=== PATIENT | female | born 1955 | race Caucasian/White ===

== ENCOUNTER → 2017-12-24 | Outpatient (CLI) | payer OTHER | END | disposition home or self-care (01) | LOC: C.CPL 14:38 | PROVIDERS: ATTEND Orthopaedic Surgery | DX: M25.531 Pain in right wrist (principal) ==

== ENCOUNTER 2023-03-05 06:48 | Observation (INO) ==
--- NOTE | 2023-01-24 12:10 | PAT Medication Instructions ---
Medication Instructions Date of Service January 24, 2023 Home Medications calcium-vitamin D3-vitamin K 500 mg-100 unit-40 mcg chewable tablet 2 tab PO QAM cholecalciferol (vitamin D3) 50 mcg (2,000 unit) capsule (Vitamin D3) 100 mcg PO QAM hydrochlorothiazide 12.5 mg capsule 12.5 mg PO QAM iodine (kelp) 1 tab PO QAM levothyroxine 88 mcg tablet 88 mcg PO QAM losartan 100 mg tablet 100 mg PO QAM multivitamin 1 tab PO QAM turmeric 150 mg-herbal complex no.278 capsule 1 cap PO QAM ] zinc 50 mg tablet 50 mg PO QAM STOP taking 2 weeks before surgery turmeric 150 mg-herbal complex no.278 capsule 1 cap PO QAM DO NOT take the morning of surgery zinc 50 mg tablet 50 mg PO QAM losartan 100 mg tablet 100 mg PO QAM calcium-vitamin D3-vitamin K 500 mg-100 unit-40 mcg chewable tablet 2 tab PO QAM cholecalciferol (vitamin D3) 50 mcg (2,000 unit) capsule (Vitamin D3) 100 mcg PO QAM hydrochlorothiazide 12.5 mg capsule 12.5 mg PO QAM iodine (kelp) 1 tab PO QAM multivitamin 1 tab PO QAM Take morning of surgery With a small sip of water, OTHERWISE NOTHING TO EAT OR DRINK AFTER MIDNIGHT: levothyroxine 88 mcg tablet 88 mcg PO QAM Other Notes If you have any questions please call us at [phone] or [phone] or [phone] or [phone]
--- NOTE | 2023-01-30 09:23 | Anesthesiology Consultation ---
Date of Service January 30, 2023 Assessment & Plan (1) Encounter for pre-operative examination: Chart Review Chart Review: Acceptable Risk for Surgery (pending PCP clearance 02/04/23) and Patient seen in Pre Admission Testing - Awaiting PCP clearance 02/04/23 - Pt did call into PAT on 02/05/23- hesitant re: BINTA- feels she may want GA - encouraged to discuss with anesthesiologist DOS Pt is NOT a Same Day Joint candidate due to patient not wanting to go home the same day- patient would like 23 hour observation- surgeon's office made aware on 02/05/23 Per PAT appt on 01/30/23, patient denies any recent travel or large group activities. Pt is NOT vaccinated for Covid. Will leave to surgeon's discretion if preop Covid testing needed. Educated on importance of using Covid precautions one week prior to surgery Teaching & Discussion Pre-Anesthesia Teaching/Discussion Notes: Instructed NPO after midnight before surgery,except medications with 15 cc of water. Medication instructions provided according to the PAT guidelines. History Surgery Operation Date: 03/05/23 08:25 Proposed Procedures p Left Total Knee Arthroplasty - Guido Springer DO Height/Weight Height: 5 ft 10 in Weight: 80.2 kg Allergies Allergy/AdvReac Type Severity Reaction Status Date / Time clarithromycin [From Biaxin] Allergy Intermediate SEVERE Verified 01/24/23 08:21 HEADACHE Sulfa (Sulfonamide Allergy Intermediate Hives Verified 01/24/23 08:21 Antibiotics) Medications Home Medications Medication Instructions Recorded Confirmed Last Taken calcium-vitamin D3-vitamin K 500 2 tab PO QAM 01/24/23 01/24/23 Unknown mg-100 unit-40 mcg chewable tablet cholecalciferol (vitamin D3) 50 100 mcg PO QAM 01/24/23 01/24/23 Unknown mcg (2,000 unit) capsule (Vitamin D3) hydrochlorothiazide 12.5 mg capsule 12.5 mg PO QAM 01/24/23 01/24/23 Unknown iodine (kelp) 1 tab PO QAM 01/24/23 01/24/23 Unknown levothyroxine 88 mcg tablet 88 mcg PO QAM 01/24/23 01/24/23 Unknown losartan 100 mg tablet 100 mg PO QAM 01/24/23 01/24/23 Unknown multivitamin 1 tab PO QAM 01/24/23 01/24/23 Unknown turmeric 150 mg-herbal complex 1 cap PO QAM 01/24/23 01/24/23 Unknown no.278 capsule zinc 50 mg tablet 50 mg PO QAM 01/24/23 01/24/23 Unknown Past Medical History Medical History Claustrophobia No issues with oxygen mask History of COVID-19 06/2022>RESOLVED Hx of migraines Hx of vertigo Per previous PCP records- feels possibly orthostatic in nature- pt referred to PT for vestibular therapy Improved with Sarah Beth maneuver as of PAT appt 01/30/23 Negative tilt table per patient Hypertension Hypothyroidism Mitral valve prolapse Mild per patient; no murmur noted at 01/30/23 PAT appt Osteoporosis PVC (premature ventricular contraction) Asymptomatic; 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 Exercise / Class Metabolic Activity II 4-5 Yardwork/Stairs/Walk up hill (one flight of stairs - no chest pain or SOB ) Past Family History Family History Other No family history of adverse response to anesthesia Past Surgical History Surgical History H/O microdiscectomy LUMBAR H/O parathyroidectomy (TAKEN OUT D/T "IRREGULAR SHAPE/BENIGN") H/O wrist surgery RT (HARDWARE) History of arthroscopy RT KNEE History of cataract surgery RT History of colonoscopy History of tonsillectomy and adenoidectomy History of tooth extraction S/P LASIK surgery of both eyes Past Anesthesia History No Hx of Anesthesia Complications and No Family Hx of Anesthesia Complications History of PONV No Hx of PONV and No Hx of Motion Sickness Social History Smoking Status: Never smoker Hx Alcohol Use: Yes alcohol intake frequency: holidays/special occasions only substance use type: does not use Review of Systems Hx of snoring- hx of sleep study- no MELISSA Patient denies chest pain, shortness of breath, dyspnea on exertion, reflux, cough, wheezing, palpitations. No hx of seizures, stroke, [place]. No hx of blood clots or blood transfusions Physical Exam Vital Signs VITALS BP 163/80 (patient took BP medication less than an hour ago; anxious about surgery- will be seeing PCP for preop clearance 02/04/23) P 81 TEMP 98.0 SP02 100% RESP 16 Constitutional no acute distress ENMT Mouth: no TMJ clicking Thyromental Distance: < 3.5 Finger Breadths (3.0) Mallampati Class: I Full dentures on top and bottom Neck neck extension not limited Respiratory normal respiratory effort; no respiratory distress Auscultation: lungs clear to auscultation bilaterally; no wheezes Cardiovascular Rate/Rhythm: regular rate and regular rhythm Heart Sounds: no murmur Vessels: no carotid bruit Musculoskeletal Spine: no pain with cervical ROM Extremities: extremities normal to inspection Psychiatric Orientation: alert Lab Results Anesthesia Preop Results Results Anesthesia Widget: WBC 4.82 K/ul (4.8-10.8) 01/30/23 Hgb 13.1 g/dl (12.0-16.0) 01/30/23 Hct 39.2 % (37.0-47.0) 01/30/23 Plt 267 K/uL (130-400) 01/30/23 Na 136 mmol/L (136-145) 01/30/23 K 3.6 mmol/L (3.5-5.1) 01/30/23 Cl 100 mmol/L (98-107) 01/30/23 CO2 30 mmol/L (21-32) 01/30/23 BUN 9 mg/dl (6-23) 01/30/23 Creat 0.65 mg/dl (0.6-1.2) 01/30/23 Glucose Level 92 mg/dl (70-99(Fasting)) 01/30/23 PT 10.7 Seconds (9.0-12.0) 01/30/23 PTT 30.5 Seconds (21.0-31.0) 01/30/23 INR 1.0 (0.9-1.1) 01/30/23 HA1c 5.2 % (4.5-5.6) 01/30/23 Urine Color Yellow 01/30/23 Urine Appearance Clear (Clear) 01/30/23 Urine pH 7.5 (4.5-7.5) 01/30/23 Urine Specific [place] 1.007 (1.000-1.030) 01/30/23 Urine Protein Negative (Negative) 01/30/23 Urine Glucose (UA) Negative (Negative) 01/30/23 Urine Ketones Negative (Negative) 01/30/23 Urine Blood Negative (Negative) 01/30/23 Urine Nitrite Negative (Negative) 01/30/23 Urine Bilirubin Negative (Negative) 01/30/23 Urine Urobilinogen Negative (Negative) 01/30/23 Urine Leukocyte Esterase Trace (Negative) H 01/30/23 Urine WBC (Auto) 1-5 /hpf (0-5) 01/30/23 Urine RBC (Auto) 0-4 /hpf (0-4) 01/30/23 Urine Hyaline Casts (Auto) 1-5 /lpf (0-5) 01/30/23 Urine Epithelial Cells (Auto) 0-5 /lpf (0-5) 01/30/23 Urine Bacteria (Auto) Negative (Negative) 01/30/23 Blood Type B Positive 01/30/23 Antibody Screen NEGATIVE 01/30/23 Testing Electrocardiogram Date: 01/30/23 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 Lopez- patient can proceed as scheduled) Chest X-Ray Date: 01/30/23 Findings: + NAD COVID-19 Risk Screen Screening Information COVID-19 Screen Date: 01/30/23 Exposure 21 Days Family/Household +COVID Last 21 Days: No Exposure 10 Days Any COVID Exposure Last 10 Days: No Symptoms Last 10 Days Experienced COVID Sx Last 10 Days: No + COVID 0-90 Days COVID + in Last 0-90 Days: No Risk Plan COVID Risk Plan: No Risk Identified Patient Education COVID Preop Screening Education Complete: Yes
--- NOTE | 2023-02-05 10:06 | History & Physical Report ---
Date of Service February 05, 2023 date of surgery: 03/05/23 Procedure: Left Total Knee Arthroplasty Surgeon: Guido Springer Assessment & Plan (1) Arthritis of knee, left: Plan: Risks and benefits of the procedure discussed in detail, she has failed conservative measures and will proceed with left total knee replacement. Will place on aspirin 81 mg twice a day for 1 month postop DVT prophylaxis, will follow-up in the office 2 weeks postop sooner if she is having issues. This point time as no other questions or concerns The risks and benefits have been discussed including, but not limited to, risk of infection, nerve injury, stiffness, loss of motion, failure to improve, etc. Reasonable outcomes and options of treatment were discussed. An explanation of appropriate alternatives to the procedure that may be advantageous were discussed and their risks and benefits, as well as the risks and benefits of not proceeding with treatment. I offered to answer any additional inquiries concerning the treatment involved. All the patient's questions were answered. The patient is agreeable, understanding of the treatment plan and alternatives, and wishes to proceed with the treatment plan. History of Present Illness Chief Complaint: left knee pain Primary Care Provider: Deidre Sherafshin Cao is a pleasant 68-year-old female presents for preop evaluation prior to left total knee replacement. She states she began pain in his knee for many years now which gradually worsened and is now affecting her daily activities including walking standing using stairs. She has tried and failed previous conservative options including NSAIDs, injections, bracing as well as home exercise program. She rates her current pain as a 7 out of 10, at this point time is failed conservative measures and would like to proceed with a left total knee replacement Allergies Allergy/AdvReac Type Severity Reaction Status Date / Time clarithromycin [From Biaxin] Allergy Intermediate SEVERE Verified 01/24/23 08:21 HEADACHE Sulfa (Sulfonamide Allergy Intermediate Hives Verified 01/24/23 08:21 Antibiotics) Home Medications Medication Instructions Recorded Confirmed Type calcium-vitamin D3-vitamin K 500 2 tab PO QAM 01/24/23 01/24/23 History mg-100 unit-40 mcg chewable tablet cholecalciferol (vitamin D3) 50 100 mcg PO QAM 01/24/23 01/24/23 History mcg (2,000 unit) capsule (Vitamin D3) hydrochlorothiazide 12.5 mg capsule 12.5 mg PO QAM 01/24/23 01/24/23 History iodine (kelp) 1 tab PO QAM 01/24/23 01/24/23 History levothyroxine 88 mcg tablet 88 mcg PO QAM 01/24/23 01/24/23 History losartan 100 mg tablet 100 mg PO QAM 01/24/23 01/24/23 History multivitamin 1 tab PO QAM 01/24/23 01/24/23 History turmeric 150 mg-herbal complex 1 cap PO QAM 01/24/23 01/24/23 History no.278 capsule zinc 50 mg tablet 50 mg PO QAM 01/24/23 01/24/23 History Past Med/Surg History Medical History Claustrophobia No issues with oxygen mask History of COVID-19 06/2022>RESOLVED Hx of migraines Hx of vertigo Per previous PCP records- feels possibly orthostatic in nature- pt referred to PT for vestibular therapy Improved with Sarah Beth maneuver as of PAT appt 01/30/23 Negative tilt table per patient Hypertension Hypothyroidism Mitral valve prolapse Mild per patient; no murmur noted at 01/30/23 PAT appt Osteoporosis PVC (premature ventricular contraction) Asymptomatic; 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 Surgical History H/O microdiscectomy LUMBAR H/O parathyroidectomy (TAKEN OUT D/T "IRREGULAR SHAPE/BENIGN") H/O wrist surgery RT (HARDWARE) History of arthroscopy RT KNEE History of cataract surgery RT History of colonoscopy History of tonsillectomy and adenoidectomy History of tooth extraction S/P LASIK surgery of both eyes Family History Other No family history of adverse response to anesthesia Social History Smoking Status: Never smoker Second Hand Exposure: Yes ( A CHILD); Hx Alcohol Use: Yes Preferred Language: [place] [employer] Required: No Beliefs That Will Affect Care: None marital status: Current Living Situation: Spouse Feels Safe at Home: Yes Assistive Devices: Denture - Upper and Denture - Lower Review of Systems Review of Systems: All systems reviewed & are unremarkable except as noted in HPI & below Constitutional: no fever, no chills and no sweats Respiratory: no cough and no dyspnea Cardiovascular: no chest pain, no dyspnea and no orthopnea Gastrointestinal: no abdominal pain, no nausea and no vomiting Musculoskeletal: as per Subjective / HPI Physical Exam Physical Exam: HT: 5ft 10in WT: 80.2kg Constitutional: WD/WN, vitals as above no acute distress Respiratory: normal respiratory effort, lungs clear to auscultation no respiratory distress, no labored breathing and does not use accessory muscles Cardiovascular: RRR, no murmur, no edema Gastrointestinal (Abdomen): normal bowel sounds, soft, nontender, no hepatosplenomegaly Musculoskeletal: Knee: + knee abnormal to inspection (LEFT KNEE), + effusion (+1 effusion), + limited ROM of knee (ROM 0/3/110), + knee ROM with crepitation, + joint line tenderness (medial joint line) and + Tyrell's sign positive; no deformity, no skin erythema, no ecchymosis, no valgus laxity, no varus laxity, anterior drawer test negative, Nghia's sign negative and pivot shift test negative Results & Data Results & Data Diagnostic Findings Left Knee X-ray: left knee series confirm advanced degenerative changes to the left knee, greatest medial compartments and patellofemoral joint, showing joint space narrowing, osteophyte formation and subchondral sclerosis. no acute bony pathology noted.
[~2023-03-05 06:48] MED LIST: ACETAMINOPHEN 500 MG TAB PO SCH; BUPIVACAINE 0.5 % 5 MG/1 ML PF 10ML VIAL ONE; DEXAMETHASONE SOD INJ 4 MG/ML VIAL ONE; FAMOTIDINE 20 MG TAB PO SCH; GABAPENTIN 300 MG CAP PO SCH; LR 500ML BOLUS, THEN 15ML/HR IV SCH; METOCLOPRAMIDE HCL 10 MG TABLET PO SCH; ROPIVACAINE 0.5% 5 MG/ML 30 ML VIAL ONE; ROPIVACAINE 0.5% HCL/PF 150 MG, BUPIVACAINE 0.75% MPF 20 ML, EPINEPHrine 30MG/30ML (OR ... INSTIL SCH; TRANEXAMIC ACID 1,000 MG **IV Intra-op IV SCH; TRANEXAMIC ACID 1,000 MG **IV Pre-op IV SCH; ceFAZolin 2000MG 2,000 MG/15 ML SYR IV SCH; dexAMETHasone 4 MG TAB PO SCH
[2023-03-05] MEDS ORDERED: LIDOCAINE 2% 2 ML VIAL/AMP(20MG/ML) INFIL ONE (08:29)
[2023-03-05] MEDS ORDERED: MIDAZOLAM HCL 1 MG/ML 2ML VIAL ONE (08:29)
[2023-03-05] MEDS ORDERED: PROPOFOL IV EMULSION 10 MG/ML 20 ML VIAL IV ONE (08:29)
[2023-03-05] MEDS ORDERED: ATROPINE SULFATE 0.1 MG/ML 10ML SYR IV PRN (09:19)
[2023-03-05] MEDS ORDERED: ONDANSETRON INJ 2 MG/ML 2 ML VIAL IV PRN ×2 (09:19→14:04)
[2023-03-05] MEDS ORDERED: HYDROmorphone INJ 2 MG/ML SYR/VIAL IV PRN (09:19)
[2023-03-05] MEDS ORDERED: ePHEDrine sulfate 50 MG/ML AMP IV PRN (09:19)
[2023-03-05] MEDS ORDERED: ORTHO JOINT ANESTHETIC ONE (09:25)
--- NOTE | 2023-03-05 09:58 | History & Physical Bridge Note ---
Date of Service March 05, 2023 History & Physical Bridge Note I have examined the patient, reviewed the History & Physical and in the interval since the performance of the History & Physical I have noted the following changes of clinical significance: no changes noted
--- NOTE | 2023-03-05 11:25 | Operative Report ---
Post Operative Report Pre & Post Diagnosis Operation Date: 03/05/23 09:00 Pre-Op Diagnosis: Left Knee Osteoarthritis Post-Op Diagnosis: Left Knee Osteoarthritis I identified the patient and participated in the time-out.: Yes Procedure Operation Date: 03/05/23 09:00 Actual Procedures p Left Total Knee Arthroplasty(Left) utilizing [employer] journey 2 patient matched total knee arthroplasty size 7 femur tibia 6 poly 11 constrained patella 32 sal- Guido Springer DO Surgeon Guido Springer DO Insurance Claims Processor WYATT Tate Estimated Blood Loss 5 Findings Consistent with Post-Op Diagnosis Patient presents with severe end-stage DJD of the left knee nonresponse to conservative management patient has subchondral sclerosis subchondral cystic changes marginal osteophytes moderate to large effusion eburnated [id number] Specimens Bone and cartilage Drains Medium bore Hemovac Anesthesia Type MAC Spinal Regional Complications none Disposition Accompanied Patient To Recovery: No Disposition: Recovery Room Indications Patient presents with severe end-stage DJD left knee having failed attempted conservative management occluding physical therapy anti-inflammatories relative rest activity modification corticosteroid injection viscosupplementation the above intraoperative findings were noted Description of Procedure After proper prepping and draping of the left lower extremity anterior midline incision was made over the region of the extensor extensor mechanism after meticulous hemostasis was obtained and maintained in subcutaneous tissues a medial parapatellar incision was made The patella was subluxed lateralward the medial lateral gutter were cleaned from any hypertrophic synovitis and scar tissue of the distal femoral block was placed and the distal femoral osteotomy cut was made subsequently the chamfers anterior and posterior osteotomy cuts were made utilizing the 4-in-1 block the tibia was subsequently subluxed anteriorward medial and ateral meniscal remnants were excised in their entirety remnants of the anterior and posterior cruciate ligaments were excised in their entirety excellent exposure of the proximal tibia was obtained the tibial osteotomy guide was placed on the proximal tibial osteotomy cut was made once again the knee was irrigated with copious amounts of sterile saline solution the patella was subsequently everted lateralward thickened scar tissue around the patella was removed the patella was subsequently cut utilizing a freehand technique and was drilled prepared for final preparation and placement of patella socially flexion-extension gaps were checked and the equal and symmetric trials were placed to the appropriate femoral and tibial trials with poly-spacer being placed for equal flexion and extension gaps and full range of motion including extension to 0 and flexion to 140 the trial components after having been taken to recovery range of motion was subsequently removed meticulous hemostasis was obtained and maintained subsequently a knee block injection of joint cocktail including ropivacaine 0.5% 150 mg. Bupivacaine 0.5% epinephrine 1-200,030 mL's toradol 30 mg dexamethasone 4 mg ketamine 10 mg clonidine 100 micrograms normal saline solution 30 mg was infiltrated into the soft tissues of the posterior knee medial lateral gutters and periosteal synovium special attention was paid to protect neurovascular structures at all times subsequently trial components having been removed the knee was irrigated with sterile saline solution. debris was removed the proximal tibia was subsequently prepared and was made ready for the placement of the tibial component tibial component was also cemented and tamped into position the femoral component was subsequently placed and cemented in the position the patellar component was subsequently cemented in position because hemostasis once again obtained and maintained wound having been thoroughly irrigated with debridement and debridement lavage was performed as well as a medial parapatellar incision closed with #1 Vicryl in interrupted fashion subcutaneous was closed with #2 Vicryl skin was closed with skin clips. PA-C was necessary for prepping and drapping as well as wound closure of deep fascia Sub cutaneous tissue and skin and was necessary for the case. A sterile compressive dressing was placed patient was taken to recovery in stable condition of report dictated by Gian I attest to the content of the Intraoperative Record and any orders documented therein. Any exceptions are noted below.Due to the complex nature of the procedure, the entire surgery was performed with the operational assistance of LUCERO Tate. The press assistant, under direct supervision, was involved in the actual performance of all aspects of the surgical procedure including hemostasis, tissue retraction and incision, instrument management, patient positioning, and wound closure. I attest to the content of the Intraoperative Record and any orders documented therein. Any exceptions are noted below.
--- NOTE | 2023-03-05 12:17 | Anesthesiology Progress Note ---
Date of Service March 05, 2023 Anesthesia Post Procedure Vital Signs Vital Signs: Temp Pulse Pulse Resp BP Pulse Ox O2 Del Method 03/05/23 12:05 75 14 128/80 100 Oxymask 03/05/23 11:56 36.2 C L 84 19 128/77 98 Oxymask 03/05/23 07:22 36.8 C 77 18 177/107 H 98 Room Air O2 Flow Rate 03/05/23 12:05 9 03/05/23 11:56 9 03/05/23 07:22 Pain Intensity Left Knee: Pain Intensity: 0 Transfer of Care Handoff Completed per policy Notes Mental Status: alert / awake / arousable and participated in evaluation Nausea / Vomiting: adequately controlled Pain: adequately controlled Airway Patency, RR, SpO2: stable & adequate BP & HR: stable & adequate Hydration State: stable & adequate Anesthetic Complications: no major complications apparent and Pt Satisfied with anesthetic care
--- NOTE | 2023-03-05 12:50 | XRay Report ---
XR knee LT 1 or 2V routine CLINICAL HISTORY: Surgical Post Op TECHNIQUE: 2 views of the left knee were obtained. Comparison: None available at the time of this dictation. FINDINGS: Patient is status post total knee arthroplasty with expected postsurgical changes including soft tiss ue swelling and subcutaneous emphysema. No periarticular lucency or hardware fracture is seen. IMPRESSION: Expected postoperative appearance status post placement of total knee arthroplasty. ACT 112: Negative or not required by law. Electronically signed by: Oren Sher M.D. 03/05/2023 12:48 PM
[2023-03-05] MEDS ORDERED: METOCLOPRAMIDE HCL INJ 5 MG/ML 2 ML VIAL IV PRN (14:04)
[2023-03-05] MEDS ORDERED: bisacodyL 10 MG SUPP PR PRN (14:04)
[2023-03-05] MEDS ORDERED: MAGNESIUM HYDROXIDE SUSP 30 ML UDC PO PRN (14:04)
[2023-03-05] MEDS ORDERED: NALOXONE HCL 0.4 MG/1 ML VIAL/CARP IV PRN (14:04)
[2023-03-05] MEDS ORDERED: diphenhydrAMINE Capsule 25 MG CAP PO PRN (14:04)
[2023-03-05] MEDS ORDERED: HYDROmorphone INJ 0.5 MG/0.5 ML SYR IV PRN (14:04)
[2023-03-05] MEDS: SODIUM CHLORIDE 0.9% 1000ML 1,000 ML IV SCH (15:11)
[2023-03-05] MEDS ORDERED: LOSARTAN POTASSIUM 50 MG TAB PO ONE (15:15)
[2023-03-05] MEDS ORDERED: Nursing to Pharmacy Communication SCH (15:15)
[2023-03-05] MEDS: ACETAMINOPHEN 500 MG TAB PO SCH ×2 (15:17→22:32)
[2023-03-05] MEDS: ceFAZolin 2000MG 2,000 MG/15 ML SYR IV SCH (17:39)
[2023-03-05] MEDS: KETOROLAC TROMETHAMINE 15 MG/ML VIAL IV SCH (17:39)
[2023-03-05] MEDS: oxyCODONE HCL IR 5 MG TAB (IMMEDIATE RELEASE) PO PRN (20:24)
[2023-03-05] MEDS: DOCUSATE SODIUM 100 MG CAP PO SCH (20:26)
--- NOTE | 2023-03-05 20:29 | Hospitalist Consultation ---
Date of Consultation March 05, 2023 Assessment & Plan (1) Arthritis of knee, left: 68yo Female with PMH HTN hypothyroidism here for left knee replacement performed by [facility]. Left knee replacement -performed 03/05 by ortho, ortho managing -hemovac present -was started on aspirin 81mg BID for VTE prophylaxis -PT/OT ordered -tylenol PRN dilaudid toradol ordered for pain control -bowel regime ordered HTN -continue home HCTZ, losartan -elevated BP at this time likely some part due to pain Hypothyroidism -continue levothyroxine FENa: regular Code Status: full DVT PPX: aspirin 81mg BID PT/OT: ordered Dispo: med/surg Marichuy Allred D.O. PGY 2, FCM Supervising Physician Co-Signing Physician Notes Attending addendum: I have physically seen this patient, have supervised the medical residents activities, and agree with the H&P unless as otherwise noted. Assessment and Plan: Status post left total knee arthroplasty on 03/05- Seen postoperatively is medically stable Postop and pain management care per orthopedic surgery Hypertension-continue HCTZ 12.5 mg every morning and and losartan check a BMP in the a.m., and hold if acute kidney injury Hypothyroidism- Continue present dosing of levothyroxine 88 mcg daily We will follow along during hospital stay History of Present Illness Reason for Consultation: med management Attending Physician: Guido Springer DO History of Present Illness 68yo Female with PMH HTN hypothyroidism here for left knee replacement performed by [facility]. At this time patient states she is doing well, has some numbness tingling in her left foot and pain in left knee, she wonders if she is due for pain medication. Otherwise denies headache confusion nausea SOB chest pain abd pain. Patient understands she was placed on aspirin for VTE prophylaxis and will be participating in PT afterwards. Allergies Allergy/AdvReac Type Severity Reaction Status Date / Time clarithromycin [From Biaxin] Allergy Intermediate SEVERE Verified 03/05/23 07:19 HEADACHE Sulfa (Sulfonamide Allergy Intermediate Hives Verified 03/05/23 07:19 Antibiotics) Home Medications Medication Instructions Recorded Confirmed Type calcium-vitamin D3-vitamin K 500 2 tab PO QAM 01/24/23 03/05/23 History mg-100 unit-40 mcg chewable tablet cholecalciferol (vitamin D3) 50 100 mcg PO QAM 01/24/23 03/05/23 History mcg (2,000 unit) capsule (Vitamin D3) hydrochlorothiazide 12.5 mg capsule 12.5 mg PO QAM 01/24/23 03/05/23 History iodine (kelp) 1 tab PO QAM 01/24/23 03/05/23 History levothyroxine 88 mcg tablet 88 mcg PO QAM 01/24/23 03/05/23 History losartan 100 mg tablet 100 mg PO QAM 01/24/23 03/05/23 History multivitamin 1 tab PO QAM 01/24/23 03/05/23 History turmeric 150 mg-herbal complex 1 cap PO QAM 01/24/23 03/05/23 History no.278 capsule zinc 50 mg tablet 50 mg PO QAM 01/24/23 03/05/23 History acetaminophen 500 mg tablet 1,000 mg PO Q8 14 days #84 tabs 03/06/23 Rx (Tylenol Extra Strength) aspirin 81 mg tablet,delayed 81 mg PO BID 30 days #60 tabs 03/06/23 Rx release cefadroxil 500 mg capsule 500 mg PO BID #28 caps 03/06/23 Rx oxycodone 5 mg tablet 5 mg PO Q4H PRN pain #30 tabs 03/06/23 Rx polyethylene glycol 3350 17 gram 17 g PO DAILY PRN constipation #5 03/06/23 Rx oral powder packet (Miralax) ea potassium chloride 10 mEq 10 meq PO DAILY #7 caps 03/06/23 Rx capsule,extended release Patient History Medical History (Updated 03/06/23 @ 11:29 by Rosaline Malhotra PA-C) Claustrophobia No issues with oxygen mask History of COVID-19 06/2022>RESOLVED Hx of migraines Hx of vertigo Per previous PCP records- feels possibly orthostatic in nature- pt referred to PT for vestibular therapy Improved with Sarah Beth maneuver as of PAT appt 01/30/23 Negative tilt table per patient Hypertension Hypothyroidism Mitral valve prolapse Mild per patient; no murmur noted at 01/30/23 PAT appt Osteoporosis PVC (premature ventricular contraction) Asymptomatic; no analog design engineer Surgical History H/O microdiscectomy LUMBAR H/O parathyroidectomy (TAKEN OUT D/T "IRREGULAR SHAPE/BENIGN") H/O wrist surgery RT (HARDWARE) History of arthroscopy RT KNEE History of cataract surgery RT History of colonoscopy History of tonsillectomy and adenoidectomy History of tooth extraction S/P LASIK surgery of both eyes Family History Other No family history of adverse response to anesthesia Social History Smoking Status: Never smoker Second Hand Exposure: Yes ( A CHILD); Hx Alcohol Use: Yes Preferred Language: Occitan Communication Ability: Effective Liability Claims Examiner Required: No Beliefs That Will Affect Care: None marital status: Current Living Situation: Spouse Feels Safe at Home: Yes Safety Concerns: Feels Safe At This Time Assistive Devices: Denture - Upper and Denture - Lower Physical Exam Constitutional: WD/WN, vitals as above Eyes: PERRL, conjunctivae normal, anicteric sclerae ENMT: external ear and nose normal, oropharynx normal Neck: trachea midline, no thyromegaly Respiratory: normal respiratory effort, lungs clear to auscultation Cardiovascular: RRR, no murmur, no edema Gastrointestinal (Abdomen): normal bowel sounds, soft, nontender, no hepatosplenomegaly Skin: no rashes, warm and dry bandages present along left knee with hemovac present Neurologic: moves all extremities light touch intact throughout Results & Data Results & Data Vital Signs (Past 12 Hours) Vital Signs Temp Pulse Pulse Resp BP Pulse Ox O2 Del Method 03/05/23 19:31 36.6 C 74 16 189/99 H 100 Room Air 03/05/23 15:00 37.0 C 83 16 188/103 H 98 Room Air 03/05/23 14:34 36.6 C 77 16 178/101 H 95 Room Air 03/05/23 14:04 36.5 C 80 16 166/91 H 98 Room Air 03/05/23 13:35 74 17 164/91 H 97 Room Air 03/05/23 13:20 76 18 141/86 H 96 Room Air 03/05/23 13:05 71 16 146/86 H 96 Room Air 03/05/23 12:50 69 14 149/92 H 94 Room Air 03/05/23 12:25 69 13 137/84 97 Room Air 03/05/23 12:35 36.3 C L 74 23 143/83 H 97 Room Air 03/05/23 12:15 77 16 132/80 94 Room Air 03/05/23 12:05 75 14 128/80 100 Oxymask 03/05/23 11:56 36.2 C L 84 19 128/77 98 Oxymask O2 Flow Rate 03/05/23 19:31 03/05/23 15:00 03/05/23 14:34 03/05/23 14:04 03/05/23 13:35 03/05/23 13:20 03/05/23 13:05 03/05/23 12:50 03/05/23 12:25 03/05/23 12:35 03/05/23 12:15 03/05/23 12:05 9 03/05/23 11:56 9 Resident Activity Tracking Resident Involvement: Resident Care Provided Care Provided: Adult Hospital Medicine
[2023-03-05] MEDS ORDERED: SENNA 8.6 MG TAB PO SCH (21:00)
[2023-03-05] MEDS: ASPIRIN 81 MG ECTAB PO SCH (22:31)
[2023-03-06] MEDS: KETOROLAC TROMETHAMINE 15 MG/ML VIAL IV SCH ×3 (00:59→11:23)
[2023-03-06] MEDS: SODIUM CHLORIDE 0.9% 1000ML 1,000 ML IV SCH (01:01)
[2023-03-06] MEDS: ceFAZolin 2000MG 2,000 MG/15 ML SYR IV SCH (01:04)
[2023-03-06] MEDS: ACETAMINOPHEN 500 MG TAB PO SCH ×2 (05:44→12:23)
[2023-03-06] MEDS ORDERED: LEVOTHYROXINE SODIUM 88 MCG TABLET PO SCH (06:30)
[2023-03-06] MEDS: DOCUSATE SODIUM 100 MG CAP PO SCH (07:30)
[2023-03-06] MEDS: ASPIRIN 81 MG ECTAB PO SCH (07:30)
[2023-03-06 07:37] LABS: Hematocrit (blood only) 33.3 % (37.0-47.0); Hemoglobin 11.4 g/dl (12.0-16.0); Mean Corpuscular Hemoglobin 31.1 pg (25.0-34.0); Mean Corpuscular Hgb Conc 34.2 g/dL (32.0-36.0); Mean Platelet Volume 8.8 fL (9.4-12.4); Platelet Count 262 K/uL (130-400); RDW Coefficient of Variation 12.3 % (11.5-14.5); RDW Standard Deviation 40.6 fL (36.4-46.3); Red Blood Count 3.66 M/uL (4.20-5.40); White Blood Count 11.97 K/ul (4.8-10.8)
[2023-03-06 07:55] LABS: BUN Creatinine Ratio 18.8 (10-20); Calcium 8.7 mg/dl (8.6-10.3); Creatinine Clr Calc Pharmacy 92.2 ml/min; Est GFR (Non-African American) 92.3 ml/min; Potassium 3.4 mmol/L (3.5-5.1)
[2023-03-06] MEDS ORDERED: CALCIUM 600MG + VIT D 400 IU TAB PO SCH (09:00)
[2023-03-06] MEDS ORDERED: CHOLECALCIFEROL 1,000 UNITS 25 MCG TAB PO SCH (09:00)
[2023-03-06] MEDS ORDERED: LOSARTAN POTASSIUM 50 MG TAB PO SCH (09:00)
[2023-03-06] MEDS ORDERED: MULTIVITAMIN TAB PO SCH (09:00)
[2023-03-06] MEDS ORDERED: IODINE PO SCH (09:00)
--- NOTE | 2023-03-06 10:42 | Orthopedic Progress Note ---
Date of Service March 06, 2023 Assessment & Plan (1) Arthritis of knee, left: Plan: Postop day 1 status post left total knee arthroplasty PT/OT protocols. Weightbearing as tolerated. DVT prophylaxis-aspirin p.o. twice daily, SCDs, MOJGAN rodriguez. Pain management as written. Mild hypokalemia-we will give her potassium supplement this morning. Patient has history of running of lower potassium level. She is not on potassium at home. Elevated BP this morning prior to medications. Recheck blood pressure. Will discuss blood pressure and potassium with medicine service. Planning for a lab draw for potassium in 1 week Discharge planning Case management is attempting to get patient home health services if possible[place] She understands that she may have to do outpatient PT. ADDENDUM: Discussed case with hospitalist service. (Rosaline Malhotra PA-C) 40 mEq of potassium ordered for today. We will plan on sending the patient home on potassium chloride 10 mill equivalents for the next week. A lab draw order has been placed in the chart for 1 week for BMP. Results to go to her primary care physician. Hypertension noted. Latest BP was 194/99. Patient remaining asymptomatic. [place] secondary to whitecoat syndrome. Patient states that blood pressures are normal at home. Plan to have her check her blood pressures regularly at home. Follow-up with her primary care physician in 1 week. Patient cleared per medicine service for discharge. Admission and Anticipated Discharge Date Admission Date: March 05, 2023 Subjective Postop day 1 Patient sitting in her chair at the bedside. She has just finished her physical therapy session of which they states she did very well. No complaints at this time. Pain is controlled. Physical Exam Physical Exam: Dressings are clean, dry, and intact. Calves are soft nontender. Neurovascular intact. Toes are mobile. She has good dorsiflexion and plantarflexion of her left foot. Hemovac drainage was 75 cc from the previous shift. Results & Data Vital Signs (Past 12 Hours) Vital Signs Temp Pulse Pulse Resp BP BP Pulse Ox 03/06/23 07:54 36.6 C 76 18 185/98 H 185/98 H 100 03/06/23 05:45 36.7 C 77 16 177/91 H 99 03/06/23 03:33 36.6 C 72 16 152/83 H 99 03/05/23 22:41 36.4 C L 71 16 150/83 H 96 O2 Del Method 03/06/23 07:54 Room Air 03/06/23 05:45 Room Air 03/06/23 03:33 Room Air 03/05/23 22:41 Room Air Laboratory Results Laboratory Results WBC 11.97 K/ul (4.8-10.8) H 03/06/23 07:15 RBC 3.66 M/uL (4.20-5.40) L 03/06/23 07:15 Hgb 11.4 g/dl (12.0-16.0) L 03/06/23 07:15 Hct 33.3 % (37.0-47.0) L 03/06/23 07:15 MCV 91.0 fL (80.0-100.0) 03/06/23 07:15 MCH 31.1 pg (25.0-34.0) 03/06/23 07:15 MCHC 34.2 g/dL (32.0-36.0) 03/06/23 07:15 RDW Std Deviation 40.6 fL (36.4-46.3) 03/06/23 07:15 RDW Coeff of Benja 12.3 % (11.5-14.5) 03/06/23 07:15 Plt Count 262 K/uL (130-400) 03/06/23 07:15 MPV 8.8 fL (9.4-12.4) L 03/06/23 07:15 Sodium 136 mmol/L (136-145) 03/06/23 07:15 Potassium 3.4 mmol/L (3.5-5.1) L 03/06/23 07:15 Chloride 102 mmol/L (98-107) 03/06/23 07:15 Carbon Dioxide 27 mmol/L (21-32) 03/06/23 07:15 Anion Gap 7 (3-11) 03/06/23 07:15 BUN 12 mg/dl (6-23) 03/06/23 07:15 Creatinine 0.64 mg/dl (0.6-1.2) 03/06/23 07:15 Est Cr Clr Drug Dosing 92.2 ml/min 03/06/23 07:15 Est GFR ( Amer) 107.0 ml/min 03/06/23 07:15 Est GFR (Non-Af Amer) 92.3 ml/min 03/06/23 07:15 BUN/Creatinine Ratio 18.8 (10-20) 03/06/23 07:15 Glucose 109 mg/dl (70-99(Fasting)) H 03/06/23 07:15 Calcium 8.7 mg/dl (8.6-10.3) 03/06/23 07:15 SARS-CoV-2, RNA, NAAT NEGATIVE (NEGATIVE) 03/05/23 Unknown Impressions Knee X-Ray 03/05/23 12:01 XR knee LT 1 or 2V routine CLINICAL HISTORY: Surgical Post Op TECHNIQUE: 2 views of the left knee were obtained. Comparison: None available at the time of this dictation. FINDINGS: Patient is status post total knee arthroplasty with expected postsurgical changes including soft tissue swelling and subcutaneous emphysema. No periarticular lucency or hardware fracture is seen. IMPRESSION: Expected postoperative appearance status post placement of total knee arthroplasty. ACT 112: Negative or not required by law. Electronically signed by: Oren Sher M.D. 03/05/2023 12:48 PM
[2023-03-06] MEDS ORDERED: POTASSIUM CHLORIDE CRTAB 20 MEQ TABCR PO STA (10:51)
--- NOTE | 2023-03-06 11:36 | Hospitalist Progress Note ---
Date of Service March 06, 2023 Assessment & Plan (1) Arthritis of knee, left: Plan: post op day #1 Going home later today with home PT Ortho is recommending ASA 81mg BID Discussed to take EC and with food Also discussed good bowel regimen with patient (2) Hypokalemia: Plan: mild K+ 3.4 primary team replaced with oral KCL recommend sending home on 10meq one daily and have BMP rechecked in 1 week with PCP (3) Hypothyroidism: Plan: chronic and stable continue Levothyroxine (4) Hypertension: Plan: chronic elevated today, she tells me she has a hx of "white coat syndrome" She has a home monitor and she tells me that at home her BPs run 140s/80s continue Losartan/HCTZ patient to check BP with home monitor and also will follow up with PCP She has no chest pain, SOB, dyspnea Admission and Anticipated Discharge Date Admission Date: March 05, 2023 Supervising Physician Co-Signing Physician Notes PA Supervision Note: I did not personally see or examine the patient. I verified all fletcher points and agree with WYATT Malhotra with the following exceptions and/or additions: none. Subjective Postop day #1 Left knee replacement Patient sitting in her chair at the bedside. She has just finished her physical therapy session of which they states she did very well. No complaints at this time. Pain is controlled. Review of Systems Constitutional: no fever, no chills and no fatigue Respiratory: no cough, no chest congestion and no dyspnea Cardiovascular: no chest pain, no dyspnea at rest, no palpitations and no edema Gastrointestinal: no abdominal pain, no nausea, no vomiting and no dysphagia + passing flatus no BM yet Integumentary: no rash, no lesions and no new lesions Psychiatric: no behavioral changes, no hopelessness and no change in appetite Physical Exam Constitutional: WD/WN, vitals as above BP elevated but states is always high in hospital or at doctors Neck: trachea midline, no thyromegaly Respiratory: normal respiratory effort, lungs clear to auscultation Cardiovascular: RRR, no murmur, no edema Gastrointestinal (Abdomen): normal bowel sounds, soft, nontender, no hepatosplenomegaly Psychiatric: A+Ox3, euthymic affect Results & Data Results & Data Vital Signs (Past 12 Hours) Vital Signs Temp Pulse Pulse Resp BP BP Pulse Ox 03/06/23 07:54 36.6 C 76 18 185/98 H 185/98 H 100 03/06/23 05:45 36.7 C 77 16 177/91 H 99 03/06/23 03:33 36.6 C 72 16 152/83 H 99 O2 Del Method 03/06/23 07:54 Room Air 03/06/23 05:45 Room Air 03/06/23 03:33 Room Air Laboratory Results Abnormal lab results 03/06/23 03/06/23 Range/Units 07:15 07:15 WBC 11.97 H (4.8-10.8) K/ul RBC 3.66 L (4.20-5.40) M/uL Hgb 11.4 L (12.0-16.0) g/dl Hct 33.3 L (37.0-47.0) % MPV 8.8 L (9.4-12.4) fL Potassium 3.4 L (3.5-5.1) mmol/L Glucose 109 H (70-99(Fasting)) mg/dl PG Care Time/CCT Total # of Minutes Spent Total Time Spent with Patient: Total time spent is greater than 50% in coordination of care (as documented) at patient's floor/unit and/or counseling patient: Coding Level of Care Code 48308 SUB INP/OBS CARE 11/21MIN Diagnoses Arthritis of knee, left M17.12 Hypokalemia E87.6 Hypothyroidism E03.9 Hypertension I10
--- NOTE | 2023-03-06 11:59 | Discharge Summary ---
Date of Service date of discharge: March 06, 2023 date of admission: 03-05-23 Admission HPI Per Admitting Provider Kiley is a pleasant 68-year-old female presents for preop evaluation prior to left total knee replacement. She states she began pain in his knee for many years now which gradually worsened and is now affecting her daily activities including walking standing using stairs. She has tried and failed previous conservative options including NSAIDs, injections, bracing as well as home exercise program. She rates her current pain as a 7 out of 10, at this point time is failed conservative measures and would like to proceed with a left total knee replacement Principal Diagnosis left knee arthritis Discharge Exam Vital Signs Temp 36.6 C 03/06/23 07:54 Pulse 76 03/06/23 07:54 Resp 18 03/06/23 07:54 BP 194/99 H 03/06/23 11:30 Pulse Ox 100 03/06/23 07:54 O2 Del Method Room Air 03/06/23 07:54 O2 Flow Rate 9 03/05/23 12:05 Intake & Output 03/05/23 03/06/23 03/06/23 18:59 06:59 18:59 Intake Total 1700 / 2680 980 / 2680 480 / 480 Output Total 30 / 205 175 / 205 Balance 1670 / 2475 805 / 2475 480 / 480 Weight 80.1 kg 80.1 kg Intake: IV 200 / 1180 980 / 1180 Lactated Ringer's 1,000 ml @ 15 0 / 0 mls/hr IV .Q24H SAMUEL Rx#: [id number] Sodium Chloride 0.9% 1000ML 1, 980 / 980 000 ml @ 100 mls/hr IV .Q10H SAMUEL Rx#:[id number] Tranexamic Acid / 0.7% NaCl 1, 200 / 200 000 mg In 100 ml @ 600 mls/hr IV TODAY@0600 SAMUEL Rx#:[id number] IV Perioperative 1500 / 1500 Oral 480 / 480 Output: Estimated Blood Loss 5 / 5 Drain Output 25 / 200 175 / 200 Left Knee Hemovac 25 / 200 175 / 200 Other: # Unmeasured Voids 1 Weight Measurement Method Standing Scale Musculoskeletal left knee: NVDI, calf SNT, negative dano sign. DP palpable, able to wiggle toes/ankle movement without difficulty. ALYSON dressing clean dry and intact. expected post-operative bruising noted. Discharge Data Allergies Allergy/AdvReac Type Severity Reaction Status Date / Time clarithromycin [From Biaxin] Allergy Intermediate SEVERE Verified 03/05/23 07:19 HEADACHE Sulfa (Sulfonamide Allergy Intermediate Hives Verified 03/05/23 07:19 Antibiotics) Consultations 03/05/23 18:24 Consult Hospitalist Routine Procedures Performed Operation Date: 03/05/23 09:00 Actual Procedures p Left Total Knee Arthroplasty(Left) - Guido Springer DO Ordered Studies 03/05/23 05:00 US - OR guided needle placemen Routine Hospital Course (1) Arthritis of knee, left: Postop day 1 status post left total knee arthroplasty PT/OT protocols. Weightbearing as tolerated. DVT prophylaxis-aspirin p.o. twice daily, SCDs, MOJGAN rodriguez. Pain management as written. Mild hypokalemia-we will give her potassium supplement this morning. Patient has history of running of lower potassium level. She is not on potassium at home. Elevated BP this morning prior to medications. Recheck blood pressure. Will discuss blood pressure and potassium with medicine service. Planning for a lab draw for potassium in 1 week Discharge planning Case management is attempting to get patient home health services if possible. [place]. She understands that she may have to do outpatient PT. ADDENDUM: Discussed case with hospitalist service. (Rosaline Malhotra PA-C) 40 mEq of potassium ordered for today. We will plan on sending the patient home on potassium chloride 10 mill equivalents for the next week. A lab draw order has been placed in the chart for 1 week for BMP. Results to go to her primary care physician. Hypertension noted. Latest BP was 194/99. Patient remaining asymptomatic. [place] secondary to whitecoat syndrome. Patient states that blood pressures are normal at home. Plan to have her check her blood pressures regularly at home. Follow-up with her primary care physician in 1 week. Patient cleared per medicine service for discharge. Total Time Total Time Spent Total Time Spent (In Minutes): 20 Discharge Plan Discharge Items Patient Disposition: Home - Home Health Services Reason For Visit: Left Knee Osteoarthritis Discharge Diagnosis: left total knee replacement Activity: Per Instructions section Weightbearing: Left weightbearing Weightbearing Comment: WBAT with walker Non-emergency contact: Surgeon Call non-emergency contact if: you have any medication questions, your temperature is above 101, your wound has increased redness, your wound has increased drainage and your wound pain has increased Follow-up/Referrals: Guido Springer, [Surgeon] - (Follow-up with Dr. Springer or his PA in 2 weeks from the day of your surgery for your first postoperative visit.) Diet: Regular Ambulatory Orders: Basic Metabolic Panel (Routine) Timeframe: 1 Week Location: Determined by Patient Ordered By: Leodan Taveras Attending Provider Instructions: ACTIVITY RECOMMENDATIONS: SELF CARE INSTRUCTIONS AFTER TOTAL KNEE REPLACEMENT A. You may need to continue a physical therapy program after discharge from the hospital. There are several options available to you. Your doctor will assist you in selecting the best one for you. 1. An out-patient facility 2 to 3 times a week for therapy or home therapy. 2. Continue working on all exercises taught to you in the hospital. Your goals should be to increase bending of your knee to 90 degrees and beyond and to fully straighten your knee. B. You may progress at your own pace from walking with a walker or crutches to a cane; then to no assistive devices. C. Make walking a part of your daily routine. Be up as much as comfortable with rest periods throughout the day. Rest with leg elevation is very important. Use the ice wrap frequently for the first 3-4 weeks. D. There are no restrictions on activities. You may ride in a car, shop, participate in landscape supervisor and all social activities. E. Wear the long elastic stockings (MOJGAN hose) 20 hours a day for 2 weeks after surgery. They can be removed several times a day for laundering and for a bath. F. You may shower, no tub baths until cleared by your doctor. SPECIAL CARE INSTRUCTIONS: VERY IMPORTANT TO READ AND REVIEW A. There are a few signs you need to watch for after you are home. Call [facility] if you notice any of the followin. Increased severe knee pain. Some pain is expected especially when you exercise. 2. Increased swelling in your leg or knee; pain or swelling of the calf muscle in either lower leg. 3. Any fluid drainage from the incision. 4. Shortness of breath or chest pain. B. Please call [facility] at if you have any concerns or questions about your operation or recovery. The doctor or his nurse will return your call promptly. C. You must take antibiotics before dental work, bladder, bowel or other surgery. Your doctor will provide you with a permanent care to carry describing this precaution. IMPORTANT: * REMEMBER TO TAKE ASPIRIN, 81 MG, TWICE DAILY FOR 4 WEEKS UNLESS OTHERWISE DIRECTED. THIS IS YOUR BLOOD THINNER. * HIGH RISK PATIENTS MAY BE PRESCRIBED A STRONGER BLOOD THINNER. THIS WILL BE PROVIDED AT DISCHARGE. * CALL IF INCREASED PAIN, REDNESS, DRAINAGE OR FEVER GREATER THAT 101. * WEAR MOJGAN HOSE 20 HOURS PER DAY FOR 2 WEEKS. DRESSING INSTRUCTIONS * ALYSON Dressing- This is a large suction dressing covering your incision. This will help pull any excess drainage from the wound and allow your incision to heal properly. You may shower with this if you can keep the unit outside of the shower. If any bleeding or leakage is noted please call your doctor's office. This will remain on your incision for 7 days and then should be removed. This can be done yourself or by the home nursing staff if applicable. The entire unit is disposable once removed. Once removed, keep incision clean and dry. If redness or drainage is noted, please call your surgeon. ONCE ALYSON IS REMOVED, FOLLOW THESE INSTRUCTIONS: DERMABOND Prineo- This is a mesh tape dressing that is covered with glue. It should remain in place until the incision is properly healed, usually 10-14 days. This dressing is designed to naturally slough off. You may trim the excess mesh tape as it peels off. Incision may be briefly wet in a shower. Dry immediately by blotting with a clean, dry towel. Do not bath or swim until instructed by your doctor. Do not scratch, rub, or pick at the dressing. Do not apply any topical ointments or lotions until dressing is completely removed and/or instructed by your doctor. There may be a small piece of suture material at one end of your incision. Do not pull or trim this. If it is bothersome or catching on clothing, you may cover it with a band-aid. IF INCISION IS LEAKING THROUGH DRESSING, CALL THE OFFICE . FOLLOW UP VISIT: If appointment is not already scheduled: Please call [facility] to make a follow-up appointment for 2 weeks after your surgery at . Stand-Alone Forms: My [facility] Medications and DC Order Prescriptions: New acetaminophen [Tylenol Extra Strength] 500 mg Tablet 1,000 mg PO Q8 14 Days Qty: 84 0RF aspirin 81 mg Tablet,Delayed Release (Dr/Ec) 81 mg PO BID 30 Days Qty: 60 0RF polyethylene glycol 3350 [Miralax] 17 gram powder in packet 17 g PO DAILY PRN (Reason: constipation) Qty: 5 0RF cefadroxil 500 mg capsule 500 mg PO BID Qty: 28 1RF oxycodone 5 mg tablet 5 mg PO Q4H MDD 6 PRN (Reason: pain) Qty: 30 0RF potassium chloride 10 mEq capsule, extended release 10 meq PO DAILY Qty: 7 0RF Continued multivitamin Tablet 1 tab PO QAM levothyroxine 88 mcg Tablet 88 mcg PO QAM hydrochlorothiazide 12.5 mg Capsule 12.5 mg PO QAM zinc 50 mg Tablet 50 mg PO QAM losartan 100 mg Tablet 100 mg PO QAM iodine (kelp) Tablet 1 tab PO QAM calcium-vitamin D3-vitamin K 500-100-40 mg-unit-mcg Tablet,Chewable 2 tab PO QAM cholecalciferol (vitamin D3) [Vitamin D3] 50 mcg (2,000 unit) Capsule 100 mcg PO QAM turmeric-herbal complex no.278 150 mg Capsule 1 cap PO QAM Admission Data Admit Date/Time: 03/05/23 12:01 Attending Provider: Guido Springer Admit Provider: Guido Springer Primary Care Provider: Jonas Meier Other Providers: Aneta Valentine ; Barrington Carver Other Interventions: Discharge Summary Assessment (RN) Last Done: 03/06/23 10:07
[2023-03-06] MEDS: oxyCODONE HCL IR 5 MG TAB (IMMEDIATE RELEASE) PO PRN (12:22)
[2023-03-07] MEDS ORDERED: hydroCHLOROthiazide 25 MG TAB PO SCH (09:00)
--- NOTE | 2023-03-09 06:16 | Billing Data ---
Date of Service March 09, 2023 Coding Level of Care Code 71522 IN/OBS CONSULT LVL 3,45M
== END 2023-03-06 13:40 | disposition home health service (06) ==
LOC: ASU 06:48 → 3E 06:48